=== PATIENT | female | born 1950 | race Caucasian/White ===

== ENCOUNTER 2017-04-09 05:14 | Inpatient (IN) | payer BC, OTHER ==
[2017-03-04 14:42] VITALS: BMI 36.0
--- NOTE | 2017-03-04 15:08 | PAT Medication Instructions ---
Service Date Mar 04, 2017. Current Home Medication List Acetaminophen Tab (Tylenol), 650 MG PO TID PRN for Pain Aspirin (Aspirin Ec), 81 MG PO HS Atenolol (Tenormin), 25 MG PO QAM Calcium/Vitamin D (Os-Mak 500 Plus D), 1 TAB PO QPM Cholecalciferol (Vitamin D3), 1 CAP PO QAM Hydrocodone/Acetaminophen 5MG/325MG ([place] 5MG/325MG), 2 TABLETS PO TID PRN for Pain Lisinopril (Prinivil), 10 MG PO QPM Medication Instructions For Your Scheduled Surgery - Hold the following medications evening prior to surgery: Lisinopril (Prinivil), 10 MG PO QPM - Hold the following medications the morning of surgery: Cholecalciferol (Vitamin D3), 1 CAP PO QAM - Take the following medications the morning of surgery with a sip of water: Hydrocodone/Acetaminophen 5MG/325MG ([place] 5MG/325MG), 2 TABLETS PO TID PRN for Pain (can take up to four hours prior to surgery if needed) Atenolol (Tenormin), 25 MG PO QAM Acetaminophen Tab (Tylenol), 650 MG PO TID PRN for Pain (if needed) - Take the following medications as scheduled the night before surgery: Hydrocodone/Acetaminophen 5MG/325MG ([place] 5MG/325MG), 2 TABLETS PO TID PRN for Pain Calcium/Vitamin D (Os-Mak 500 Plus D), 1 TAB PO QPM Acetaminophen Tab (Tylenol), 650 MG PO TID PRN for Pain Aspirin (Aspirin Ec), 81 MG PO HS If you have any questions please call us at [phone] or [phone] ( [place]) or [phone]
[2017-03-04 15:55] LABS: BASO % 0.1 %; BASO ABS # 0.01 K/uL (0-0.2); COMPLETE YES; EOS % 1.2 %; HEMATOCRIT 43.1 % (37-47); IG% 0.3 %; LYMPH % 16.8 %; LYMPH ABS # 1.16 K/uL (1.2-3.4); MEAN CELL VOLUME 93.9 fL (80-100); MEAN CORPUSCULAR HEMOGLOBIN 31.4 pg (25-34); MEAN CORPUSCULAR HGB CONC 33.4 g/dl (32-36); MEAN PLATELET VOLUME 12.9 fL (7.4-10.4); NEUT % 74.6 %; PLATELET COUNT 164 K/uL (130-400); RED BLOOD COUNT 4.59 M/uL (4.2-5.4)
--- NOTE | 2017-03-04 15:55 | DIAGNOSTIC IMAGING REPORT ---
CHEST PREADMISSION(PA/LAT) CLINICAL HISTORY: Preoperative evaluation. COMPARISON STUDY: No previous studies for comparison. FINDINGS: There is mild elevation of the left hemidiaphragm. No areas of consolidation are present. There is no evidence of pulmonary edema. Cardiac size is normal. Mediastinal contours are normal. IMPRESSION: No acute cardiopulmonary findings. Electronically signed by: Anthony Mckeon M.D. 03/04/2017 3:54 PM Dictated Date/Time: 03/04/2017 3:53 PM
[2017-03-04 16:08] LABS: URINE APPEARANCE CLEAR (CLEAR); URINE BILIRUBIN NEG (NEG); URINE COLOR YELLOW; URINE NITRITE NEG (NEG); URINE PH 5.5 (4.5-7.5); URINE SPECIFIC GRAVITY 1.015 (1.000-1.030); UROBILINOGEN NEG (NEG)
[2017-03-04 16:10] LABS: MANUAL MICROSCOPIC REQUIRED? YES; REVIEW REQ? NO
[2017-03-04 16:10] LABS: INR 1.1 (0.9-1.1); PARTIAL THROMBOPLASTIN RATIO 1.1; PROTHROMBIN TIME (PATIENT) 11.4 SECONDS (9.0-12.0)
[2017-03-04 16:16] LABS: BUN/CREATININE RATIO 44.8 (10-20); CALCIUM 9.9 mg/dl (8.5-10.1); CREATININE 0.62 mg/dl (0.60-1.20); POTASSIUM 4.8 mmol/L (3.5-5.1)
[2017-03-04 16:19] LABS: URINE BACTERIA 1+ (NEG); URINE RBC 0-4 /hpf (0-4)
[2017-03-04 16:20] LABS: ZZUR CULT IF INDIC CLEAN CATCH YES
[2017-03-05 07:53] LABS: ESTIMATED AVERAGE GLUCOSE 114 mg/dl; HA1C FLAG Normal (Normal)
--- NOTE | 2017-04-08 20:05 | HISTORY & PHYSICAL EXAMINATION ---
DATE OF ADMISSION: 04/09/2017 CHIEF COMPLAINT: Chronic right knee pain. HISTORY OF PRESENT ILLNESS: This is a 66-year-old female patient of Dr. Gorman complaining of chronic right knee pain, longstanding, now progressively getting worse. The patient has been diagnosed with end-stage osteoarthritis. She has failed conservative treatments including anti-inflammatories, narcotic medications, use of a cane and a walker. The patient has increased pain with weightbearing activities and her pain does interfere with her activities of daily living. PAST MEDICAL HISTORY: Hypertension, osteoarthritis and obesity. SOCIAL HISTORY: Nonsmoker, nondrinker. FAMILY HISTORY: Noncontributory. REVIEW OF SYSTEMS: The patient complains of chronic right knee pain. Otherwise denies any shortness of breath, chest pain, nausea, vomiting or any other joint complaints. PAST SURGICAL HISTORY: Tonsillectomy, bilateral right ear surgery and an ankle fracture. MEDICATIONS: 1. Aspirin 81 mg daily. 2. Atenolol 25 mg daily. 3. Calcium 500 plus D daily. 4. Hydrocodone as needed. 5. Lisinopril 10 mg daily. 6. Tylenol Arthritis as needed. ALLERGIES: No known drug allergies. PHYSICAL EXAMINATION: A well-developed and well-nourished 66-year-old female patient of Dr. Gorman complaining of chronic right knee pain, longstanding and now progressively getting worse. She also has a history of hypertension, osteoarthritis and obesity. PLAN: The patient was advised of her diagnosis. Indications, risks, benefits and postop course have all been reviewed. The patient wishes to proceed with a right total knee arthroplasty. Necessary consent forms, preoperative testing and clearances will be obtained.
[~2017-04-09] VITALS: Ht 165.1 cm; Wt 100.0 kg
[2017-04-09] VITALS (9 sets, daily range): BP systolic 100–163; BP diastolic 64–82; PULSE 74–89; TEMP 36.4–36.8; O2SAT 92–99; Ht 165.1 cm; Wt 100.0 kg
[~2017-04-09 05:14] MED LIST: ACET325T96 PO; ASPI81TA28 PO; ATEN-173 PO; CALC500C70 PO; CHOL2000 PO; HYDR-5688 PO; LISI10TA PO; MISSING PHYSICIAN SIGNATURE ON ORDER SCH
[2017-04-09] MEDS ORDERED: METOCLOPRAMIDE HCL 10 MG TAB PO SCH (06:00)
[2017-04-09] MEDS ORDERED: LACTATED RINGER'S 500 ML IV SCH (06:00)
[2017-04-09] MEDS ORDERED: FAMOTIDINE 20 MG TAB PO SCH (06:00)
[2017-04-09] MEDS ORDERED: ACETAMINOPHEN 500 MG TAB PO SCH (06:00)
[2017-04-09] MEDS ORDERED: LACTATED RINGER'S 1000ML IV SCH (06:00)
[2017-04-09] MEDS ORDERED: CEFAZOLIN 2000 MG/60 ML D5W 60 ML IV SCH (06:00)
[2017-04-09] MEDS ORDERED: CeleBREX 200 MG CAP PO SCH (06:00)
[2017-04-09] MEDS ORDERED: GABAPENTIN 300 MG CAP PO SCH (06:00)
[2017-04-09] MEDS ORDERED: LACTATED RINGER'S 1000ML 1,000 ML IV SCH (06:00)
[2017-04-09] MEDS ORDERED: ROPIVACAINE 5MG/ML 30 ML 150 MG, BUPIVACAINE/EPINEPHR 0.5% MPF 30 ML, KETOROLAC TROMETH... INFIL SCH ×7 (06:00)
[2017-04-09] MEDS ORDERED: DEXAMETHASONE 4 MG TAB PO SCH (06:00)
[2017-04-09] MEDS: TRANEXAMIC ACID INJ 1,000 MG in SODIUM CHLORIDE 0.9% 100ML 100 ML IV SCH ×2 (06:12→06:30)
[2017-04-09] MEDS ORDERED: BUPIVACAINE 0.5 % 5 MG/1 ML PF 10ML VIAL ONE (06:27)
[2017-04-09] MEDS ORDERED: PROPOFOL IV EMULSION 10 MG/ML 20 ML VIAL IV ONE (06:35)
[2017-04-09] MEDS ORDERED: LIDOCAINE HCL 2% 2 ML VIAL (20MG/ML) ONE (06:35)
[2017-04-09] MEDS ORDERED: FENTANYL CITRATE INJ 50 MCG/1 ML 2 ML VIAL ONE (06:35)
[2017-04-09] MEDS ORDERED: MIDAZOLAM HCL 1 MG/ML 2ML VIAL ONE ×2 (06:35)
[2017-04-09] MEDS ORDERED: BACITRACIN 50000 UNIT VIAL ONE (06:51)
[2017-04-09] MEDS ORDERED: POVIDONE-IODINE OP SOLN 30 ML BTL ONE (06:51)
[2017-04-09] MEDS ORDERED: ORTHO JOINT ANESTHETIC ONE (06:51)
[2017-04-09] MEDS ORDERED: EpHEDrine SULFATE INJ 50 MG/ML AMP IV PRN (07:00)
[2017-04-09] MEDS ORDERED: ONDANSETRON INJ 2 MG/ML 2 ML VIAL IV PRN ×2 (07:00→10:00)
[2017-04-09] MEDS ORDERED: ATROPINE SULFATE 0.1 MG/ML 5ML SYR IV PRN (07:00)
[2017-04-09] MEDS ORDERED: FENTANYL CITRATE INJ 50 MCG/1 ML 2 ML VIAL IV PRN (07:00)
--- NOTE | 2017-04-09 07:14 | History & Physical Bridge Note ---
H&P Re-Evaluation Bridge Note: I have examined the patient, reviewed the History & Physical and in the interval since the performance of the History & Physical I have noted the following changes of clinical significance: No changes noted
[2017-04-09] MEDS ORDERED: EpHEDrine SULFATE 50MG/5ML SYR ONE (07:47)
[2017-04-09] MEDS ORDERED: PHENYLEPHRINE 100MCG/ML 5ML SYR ONE (08:18)
--- NOTE | 2017-04-09 09:12 | [facility] Operative Report ---
Operative Report Operative Date April 09, 2017. Pre-Operative Diagnosis Right knee end-stage osteoarthritis Post-Operative Diagnosis same,chronic scarred prepatellar bursitis Procedure(s) Performed right total knee arthroplasty Surgeon Dr. Spear Track Sweeper Surgeon(s) Jared Hurtado PA-C Estimated Blood Loss 5cc Findings as above,valgus knee grade 4 lateral with some bone loss mild Specimens A. Right knee bone and tissue Drains 2 hemovac Anesthesia spinal sedation regional block and orthomix Complication(s) None Disposition Recovery Room / PACU Indications end stage oa I attest to the content of the Intraoperative Record and any orders documented therein. Any exceptions are noted below.
[2017-04-09] MEDS ORDERED: ONDANSETRON INJ 2 MG/ML 2 ML VIAL ONE (09:23)
[2017-04-09] MEDS ORDERED: ZOLPIDEM TARTRATE 5 MG TAB PO PRN (10:00)
[2017-04-09] MEDS ORDERED: OXYCODONE HCL IR 5 MG TAB (IMMEDIATE RELEASE) PO PRN (10:00)
[2017-04-09] MEDS ORDERED: MoRPHine SULFATE 2 MG/ML CARP IV PRN (10:00)
[2017-04-09] MEDS ORDERED: BISACODYL 10 MG SUPP PR PRN (10:00)
[2017-04-09] MEDS ORDERED: SOD PHOSPHATE/SOD BIPHOSPHATE ENEMA 132 ML BTL PR PRN (10:00)
[2017-04-09] MEDS ORDERED: MAGNESIUM HYDROXIDE SUSP 30 ML UDC PO PRN (10:00)
--- NOTE | 2017-04-09 10:12 | DIAGNOSTIC IMAGING REPORT ---
RIGHT KNEE 1 OR 2 VIEWS ROUTINE CLINICAL HISTORY: Degenerative arthritis COMPARISON: None. DISCUSSION: There are postsurgical changes of a total right knee arthroplasty and patellar resurfacing. The femoral and tibial components appear well seated. There is an overlying surgical drain. There is air in soft tissues consistent with recent surgery IMPRESSION: Postsurgical changes of a total right knee arthroplasty Electronically signed by: Michele Koehler M.D. 04/09/2017 10:10 AM Dictated Date/Time: 04/09/2017 10:10 AM
[2017-04-09] MEDS ORDERED: MoRPHine SULFATE 4 MG/ML 1 ML CARP\\VIAL IV PRN (11:00)
[2017-04-09] MEDS: D5W AND 1/2NSS + 20MEQ KCL 1,000 ML IV SCH ×2 (11:29→21:32)
--- NOTE | 2017-04-09 11:40 | Medical Consult ---
Consultation Date of Consultation: April 09, 2017. Attending Physician: Zack Spear M.D. Reason for Consultation: Medical management History of Present Illness Patient is a 66 y/o female, with PMHx of HTN, osteoarthritis, and obesity, s/p right TKA by Dr. Spear on 04/09. Patient states she is feeling well. Pain is currently well controlled. She has eaten postop w/ no complaints. No BM/flatus postop. Patient denies any fever, chills, sweats, lightheadedness, dizziness, vision changes, CP, palpitations, edema, SOB, wheezing, cough, abdominal pain, nausea, vomiting, diarrhea, urinary symptoms, melena, numbness/tingling, weakness, muscle/joint pain, anxiety/depression, active bleeding, or new skin discoloration/changes. Past Medical/Surgical History PAST MEDICAL HISTORY: 1. HTN 2. Osteoarthritis 3. Obesity PAST SURGICAL HISTORY: 1. Tonsillectomy 2. Bilateral right ear surgery 3. Ankle fracture repair Social History Smoking Status: Never Smoker Alcohol Use: none Housing Status: lives with family Allergies Coded Allergies: Adhesives (Verified Allergy, Mild, RED RASH, 04/09/17) NO KNOWN DRUG ALLERGIES (Verified Allergy, Mild, ., 04/09/17) Nickel (Verified Allergy, Mild, EARRING MAKES EAR SORE, 04/09/17) Home Medications Reported Home Medications Medications Dose Route/Sig Max Daily Dose Days Date Category Dose Instructions Prinivil (Lisinopril) 10 Mg Tab 20 Mg PO QPM 03/04/17 Reported Tylenol (Acetaminophen) 325 Mg Tab 650 Mg PO TID PRN 03/04/17 Reported [place] 5MG/325MG (Acetaminophen/Hydrocodone Bitart) Tab 2 Tablets PO TID PRN 03/04/17 Reported PRN PAIN Vitamin D3 (Cholecalciferol) 2,000 Unit Cap 1 Cap PO QAM 03/04/17 Reported Os-Mak 500 Plus D (Calcium/Vitamin D) Tab 1 Tab PO QPM 03/04/17 Reported Tenormin (Atenolol) 25 Mg Tab 25 Mg PO QAM 03/04/17 Reported Aspirin Ec (Aspirin) 81 Mg Tab 81 Mg PO HS 03/04/17 Reported Current Inpatient Medications Current Inpatient Medications Medications (Trade) Dose Ordered Sig/Twan Route Start Time Stop Time Status Last Admin Dose Admin Cefazolin Sodium (Ancef 2000mg/60 ml D5W) 60 ml @ 100 mls/hr PREOP IV 04/09/17 06:00 04/09/17 18:00 04/09/17 07:25 100 MLS/HR Acetaminophen (Tylenol Tab) 1,000 mg PREOP PO 04/09/17 06:00 04/09/17 18:00 04/09/17 06:19 1,000 MG Celecoxib (CeleBREX CAP) 200 mg PREOP PO 04/09/17 06:00 04/09/17 18:00 04/09/17 06:19 200 MG Dexamethasone (Decadron Tab) 8 mg PREOP PO 04/09/17 06:00 04/09/17 18:00 04/09/17 06:17 8 MG Famotidine (Pepcid Tab) 20 mg PREOP PO 04/09/17 06:00 04/09/17 18:00 04/09/17 06:18 20 MG Gabapentin (Neurontin Cap) 300 mg PREOP PO 04/09/17 06:00 04/09/17 18:00 04/09/17 06:18 300 MG Metoclopramide HCl 10 mg 10 mg PREOP PO 04/09/17 06:00 04/09/17 18:00 04/09/17 06:17 10 MG Tranexamic Acid/ Sodium Chloride (Cyklokapron Inj/ Nss 100ml) 110 ml @ 660 mls/hr TODAY@06,0630 IV 04/09/17 06:00 04/09/17 18:00 04/09/17 06:12 660 MLS/HR Fentanyl Citrate (Fentanyl Inj) 50 mcg Q5M PRN IV 04/09/17 07:00 04/09/17 12:00 Ondansetron HCl (Zofran Inj) 4 mg ONE PRN IV 04/09/17 07:00 04/09/17 12:00 Ephedrine Sulfate (EpHEDrine SULFATE INJ) 5 mg Q5M PRN IV 04/09/17 07:00 04/09/17 12:00 Atropine Sulfate (Atropine Sulfate 0.1MG/Ml Inj) 0.5 mg Q1M PRN IV 04/09/17 07:00 04/09/17 12:00 Atenolol (Tenormin Tab) 25 mg QAM PO 04/10/17 09:00 05/10/17 08:59 Calcium/Vitamin D (Caltrate Plus Tab) 1 tab QPM PO 04/09/17 21:00 05/09/17 20:59 Lisinopril (Zestril Tab) 20 mg QPM PO 04/09/17 21:00 05/09/17 20:59 Cholecalciferol 2000 inter.unit 2,000 inter.unit DAILY PO 04/10/17 09:00 05/10/17 08:59 Potassium Chloride/Dextrose/ Sod Cl 1,000 ml @ 100 mls/hr Q10H IV 04/09/17 11:15 04/10/17 09:45 04/09/17 11:29 100 MLS/HR Cefazolin Sodium/ Dextrose (Ancef Iv/D5 50ml) 60 ml @ 100 mls/hr Q8H IV 04/09/17 14:00 04/09/17 22:35 Celecoxib (CeleBREX CAP) 200 mg BID PO 04/09/17 21:00 05/09/17 20:59 Oxycodone HCl (Roxicodone Immediate Rel Tab) 1 TABLET FOR PAIN RATING... Q4H PRN PO 04/09/17 10:00 04/23/17 09:59 Oxycodone HCl (Oxycontin Tab) 10 mg Q12 PO 04/09/17 21:00 04/23/17 20:59 Morphine Sulfate (MoRPHine SULFATE INJ) 2 mg Q2H PRN IV 04/09/17 10:00 04/23/17 09:59 Acetaminophen (Tylenol Tab) 1,000 mg Q8H PO 04/09/17 14:00 05/09/17 09:59 Magnesium Hydroxide (Milk Of Magnesia Susp) 30 ml Q6H PRN PO 04/09/17 10:00 05/09/17 09:59 Bisacodyl (Dulcolax Supp) 10 mg DAILY PRN [place] 04/09/17 10:00 05/09/17 09:59 Sodium Biphosphate/ Sodium Phosphate (Fleet Enema) 132 ml DAILY PRN [place] 04/09/17 10:00 05/09/17 09:59 Docusate Sodium (coLACE CAP) 100 mg BID PO 04/09/17 21:00 05/09/17 20:59 Diphenhydramine HCl (Benadryl Cap) 25 mg Q8H PRN PO 04/09/17 10:00 05/09/17 09:59 Zolpidem Tartrate (Ambien Tab) 5 mg HSZ PRN PO 04/09/17 10:00 05/09/17 09:59 Multivitamins (Multivitamin Tab) 1 tab QAM PO 04/10/17 09:00 05/10/17 08:59 Ondansetron HCl (Zofran Inj) 4 mg Q6H PRN IV 04/09/17 10:00 05/09/17 09:59 Pantoprazole Sodium (Protonix Tab) 40 mg QAM PO 04/10/17 09:00 05/10/17 08:59 Tramadol HCl (Ultram Tab) 1 tablet for pain rating... Q4H PRN PO 04/09/17 10:00 05/09/17 09:59 Aspirin (Ecotrin Tab) 81 mg BID PO 04/09/17 21:00 05/09/17 20:59 Morphine Sulfate (MoRPHine SULFATE INJ) 4 mg Q2H PRN IV 04/09/17 11:00 04/23/17 10:59 Physical Exam Date Time Temp Pulse Resp B/P Pulse Ox O2 Delivery O2 Flow Rate FiO2 04/09/17 11:00 88 18 121/74 04/09/17 10:30 97 Nasal Cannula 3.0 04/09/17 10:30 97 Nasal Cannula 3.0 04/09/17 10:15 36.4 89 16 102/74 97 Nasal Cannula 3 04/09/17 10:05 36.4 91 16 122/66 97 Nasal Cannula 3 04/09/17 09:55 90 16 108/72 97 Nasal Cannula 3 04/09/17 09:45 36.1 96 16 109/67 95 Nasal Cannula 3 04/09/17 05:38 36.8 78 20 163/82 93 Room Air General Appearance: WD/WN, no apparent distress Head: normocephalic, atraumatic Eyes: normal inspection, PERRL ENT: hearing grossly normal Neck: supple Respiratory/Chest: lungs clear, no respiratory distress, no accessory muscle use Cardiovascular: regular rate, rhythm Abdomen/GI: normal bowel sounds, non tender, soft Extremities/Musculoskelatal: no pedal edema, + pertinent finding (TEDs/SCDs on ; ENRIQUE bandage to RLE ) Neurologic/Psych: alert, normal mood/affect, oriented x 3 Skin: normal color, warm/dry, no rash Assessment & Plan Patient is a 66 y/o female, with PMHx of HTN, osteoarthritis, and obesity, s/p right TKA by Dr. Spear on 04/09. - Surgical management, pain management, PT/OT, and DVT prophylaxis as per primary team - Follow CBC and PRP HTN: - Continue Atenolol 25 mg daily - Hold Lisinopril 20 mg daily pending PRP postop - Hydralazine 10 mg IV PRN GI Prophylaxis: Protonix daily, Maalox PRN, IV Zofran PRN, Colace and/or Milk of Mag PRN DVT prophylaxis: As per primary team Code Status: LEVEL I, FULL Dispo: Discharge as per primary team Thank you for this consultation. We will continue to follow throughout hospital stay.
[2017-04-09] MEDS ORDERED: HydrALAZINE HCL 20 MG/ML VIAL IV. PRN (11:45)
--- NOTE | 2017-04-09 12:23 | Anesthesiology Progress Note ---
Anesthesia Post Op Note Date & Time April 09, 2017 at 12:23 Vital Signs Pain Intensity: 0.0 Vital Signs Past 12 Hours Date Time Temp Pulse Resp B/P Pulse Ox O2 Delivery O2 Flow Rate FiO2 04/09/17 11:00 88 18 121/74 04/09/17 10:30 97 Nasal Cannula 3.0 04/09/17 10:30 97 Nasal Cannula 3.0 04/09/17 10:15 36.4 89 16 102/74 97 Nasal Cannula 3 04/09/17 10:05 36.4 91 16 122/66 97 Nasal Cannula 3 04/09/17 09:55 90 16 108/72 97 Nasal Cannula 3 04/09/17 09:45 36.1 96 16 109/67 95 Nasal Cannula 3 04/09/17 05:38 36.8 78 20 163/82 93 Room Air Notes Mental Status: alert / awake / arousable, participated in evaluation Pt Amnestic to Procedure: Yes Nausea / Vomiting: adequately controlled Pain: adequately controlled Airway Patency, RR, SpO2: stable & adequate BP & HR: stable & adequate Hydration State: stable & adequate Neuraxial Anesthesia: was administered, sensory block is resolving Anesthetic Complications: no major complications apparent
[2017-04-09] MEDS: ACETAMINOPHEN 500 MG TAB PO SCH ×2 (13:14→21:31)
[2017-04-09] MEDS: CEFAZOLIN IV 2,000 MG in DEXTROSE 5% 50ML 50 ML IV SCH ×2 (13:19→21:32)
[2017-04-09] MEDS: CALCIUM 600MG + VIT D 400 IU TAB PO SCH (20:34)
[2017-04-09] MEDS: DOCUSATE SODIUM 100 MG CAP PO SCH (20:34)
[2017-04-09] MEDS: CeleBREX 200 MG CAP PO SCH (20:35)
[2017-04-09] MEDS: ASPIRIN 81 MG ECTAB PO SCH (20:35)
[2017-04-09] MEDS: OXYCODONE HCL 10 MG TABCR (OXYCONTIN) PO SCH (20:35)
[2017-04-09] MEDS ORDERED: LISINOPRIL 20 MG TAB PO SCH (21:00)
--- NOTE | 2017-04-10 02:56 | OPERATIVE REPORT ---
DATE OF OPERATION: 04/09/2017 INDICATION FOR PROCEDURE: A 66-year-old female with chronic progressive pain in her right knee. She has osteoarthritis in her knee. She is dxdt-sy-cyen in the lateral compartment. She has a valgus knee. She has had progressive deformity and disability. She also has obesity, BMI of 36.7 and venous stasis disease. She now presents for right knee replacement. PREOPERATIVE DIAGNOSIS: End-stage osteoarthritis, right knee and obesity, BMI of 36.7. POSTOPERATIVE DIAGNOSIS: Same. PROCEDURE: Right total knee arthroplasty. SURGEON: Dr. Spear. TENSILE TESTER: JOSE Green. ANESTHESIA: Spinal, regional block, ortho mix. OPERATIVE PROCEDURE: The patient taken to the operating room after a regional block placed and a spinal anesthetic. She was placed supine on the operating room table. Pneumatic tourniquet was placed about her obese upper thigh. The right lower extremity was prepped and draped in a sterile fashion using ChloraPrep. The leg was elevated and exsanguinated with Esmarch bandage and the pneumatic tourniquet was raised. Her knee was examined and she had a valgus knee with qphd-rh-[id number] crepitation in the lateral compartment, some laxity of the MCL. The knee was exposed, starting with an anterior incision across the knee. Skin was incised sharply. A deep layer of fat was divided down to the patella and the fascia of the quadriceps tendon. On entering the prepatellar bursa area, she has a very chronically thickened scarred prepatellar bursa, which had very thick bursa and paratenon over the patellar tendon anteriorly. Some of this thick prepatellar bursa and paratenon-type tissue was resected. The incision was made through her medial retinaculum and extended up into the mid third of the quadriceps tendon, extending down to the medial tibial tubercle. I used the Martínez \T\ Nephew Journey 2.0 total knee arthroplasty system, using standard instrumentation. Intraarticular findings demonstrate she is [id number] in the lateral compartment. She had some mild bone loss. She had diffuse synovitis throughout the knee. The scarred infrapatellar fat pad was resected, the lateral meniscus remnants were resected, the medial meniscus was resected, the cruciate ligaments were resected. I did no releases on the medial side. We did release the lateral capsule of some of IT band, the posterolateral capsule on the lateral side to help balance the ligaments. The fat pad over the anterior femur, for placement of the femoral component in that area, was resected just above the articular surface. The lateral synovial bands were released. The femur was exposed with retractors. An intramedullary drill hole was made into the femoral canal. The intramedullary guide mj was placed and a distal femoral cut was made with a standard distal femoral cut, made at a 5-degree valgus cut. The femur was then incised for a 4 femoral component. The drill holes for the alignment guide and the distal femoral cutting guide were made in approximately 3 degrees of external rotation, matching the epicondylar axis. The femur was sized for a 4 femur. After the distal femoral cut was made with a standard cut, a 5 and 1 cutting guide was placed and pinned in position and the anterior, posterior and chamfer cuts were made. The knee was then extended and a subperiosteal peel lateral release was performed around the patella. The patella width was measured and the width was reproduced, using a freehand cut technique and a 32 patellar component. Drill holes were made and the excess lateral facet of the patella was beveled off to prevent any impingement on the femoral condyle or the prosthetic. The tibia was then exposed and an external tibial cutting guide was used to make a perpendicular cut to the long axis of the tibia, matching some of the patient's slope. We made the cut below the most deficient lateral side. The lamina route cdl driver was then used to assess ligamentous balance. Ligaments were noted to be balanced in extension and flexion. The tibia was then re-exposed and the 4 tibial trial was externally rotated in line with the tibial tubercle. The trial was pinned in position. The punch for the stem was used and the 4 femoral trial was inserted, centered in the notch, cutting devices were used. A collar was placed and a 10 trial posterior stabilized insert gave balanced ligaments through a full range of motion, but the patella had some slight lateral liftoff. So, we went ahead and did a lateral release, releasing the lateral retinaculum and the IT band fibers, leaving the synovium intact. Patella tracked centrally. At this point, the trials were removed. The anesthetic cocktail was injected per protocol. The knee was copiously irrigated with pulsatile lavage and antibiotic solution and bacitracin. The final components were then cemented with Simplex cement. The final components were the 4 Oxinium posterior stabilized Martínez \T\ Nephew Journey 2.0 femur, the 4 tibial baseplate, the 10 posterior stabilized poly insert and a 32 mm patella. All the cementing cured, the Betadine soak was used per protocol. The knee was then copiously irrigated with antibiotic solution and bacitracin. The 2 drains were brought out laterally and connected to a Hemovac. The quadriceps tendon and medial retinaculum were closed with interrupted [id number] #1 Vicryl sutures. The knee was taken through a full range of motion and the repair was secure. Subcutaneous tissues were injected with more ortho mix and then the subcutaneous tissue closed with interrupted 2-0 Vicryl and the skin was closed with 3-0 nylon vertical mattress sutures and sterile dressings were applied and the patient tolerated the procedure well. JOSE Green, was my permit review assistant. He functioned as the permit review assistant in the entire procedure. He assisted in patient positioning, prepping, draping, leg positioning, soft tissue retraction, instrument management and performed the fascial, subcutaneous and skin closure and will participate in postoperative care of the patient. I attest to the content of the Intraoperative Record and any orders documented therein. Any exceptio ns are noted below.
[2017-04-10 03:21] VITALS: BP 111/67; PULSE 74; TEMP 36.5; O2SAT 93
[2017-04-10] MEDS: ACETAMINOPHEN 500 MG TAB PO SCH ×3 (05:32→21:01)
[2017-04-10 05:50] LABS: MEAN CELL VOLUME 95.2 fL (80-100); MEAN CORPUSCULAR HEMOGLOBIN 30.7 pg (25-34); MEAN CORPUSCULAR HGB CONC 32.2 g/dl (32-36); MEAN PLATELET VOLUME 12.3 fL (7.4-10.4); PLATELET COUNT 150 K/uL (130-400); RED BLOOD COUNT 3.78 M/uL (4.2-5.4); WHITE BLOOD COUNT 11.83 K/uL (4.8-10.8)
[2017-04-10 06:23] LABS: BUN/CREATININE RATIO 39.1 (10-20); CREATININE 0.81 mg/dl (0.60-1.20); POTASSIUM 6.5 mmol/L (3.5-5.1)
[2017-04-10 06:31] LABS: CALCIUM 9.4 mg/dl (8.5-10.1)
[2017-04-10 07:11] VITALS: BP 125/74; PULSE 71; TEMP 36.4; O2SAT 94
[2017-04-10] MEDS ORDERED: INSULIN HUMAN REGULAR PER UNIT 10 UNITS in SYRINGE 9.9 ML SQ ONE (07:15)
[2017-04-10] MEDS ORDERED: DEXTROSE 50% 50 ML SYR IV ONE (07:15)
[2017-04-10] MEDS ORDERED: INSULIN HUMAN REGULAR PER UNIT 10 UNITS in SYRINGE 9.9 ML IV ONE (07:15)
[2017-04-10 08:07] VITALS: BP 144/72; PULSE 74; TEMP 36.6; O2SAT 94
--- NOTE | 2017-04-10 08:14 | Progress Note ---
Progress Note Date of Service April 10, 2017. Progress Note Critical lab called by RN to inform potassium of 6.5 without mention of hemolyzed sample. She was getting D5W with 20 meq KCl which was stopped immeadiately upon this result. EKG obtained and did not show any change from previous, no prolongation of QRS, dynamic T wave changes. Plan - Dextrose 50% 50 ml ordered with insulin 10 units IV. - repeat BMP 30 mins to 1 hour after above given.
[2017-04-10] MEDS: DOCUSATE SODIUM 100 MG CAP PO SCH ×2 (08:25→21:00)
[2017-04-10] MEDS: CHOLECALCIFEROL 1000 INTER.UNIT TAB PO SCH (08:25)
[2017-04-10] MEDS: CeleBREX 200 MG CAP PO SCH ×2 (08:25→21:00)
[2017-04-10] MEDS: ASPIRIN 81 MG ECTAB PO SCH ×2 (08:26→20:59)
[2017-04-10] MEDS: PANTOprazole SOD 40 MG TAB PO SCH (08:26)
[2017-04-10] MEDS: MULTIVITAMIN TAB PO SCH (08:26)
[2017-04-10] MEDS: OXYCODONE HCL 10 MG TABCR (OXYCONTIN) PO SCH ×2 (08:31→21:00)
--- NOTE | 2017-04-10 08:38 | Anesthesiology Progress Note ---
Anesthesia Post Op Note Date & Time April 10, 2017 at 08:37 Vital Signs Pain Intensity: 2.0 Vital Signs Past 12 Hours Date Time Temp Pulse Resp B/P Pulse Ox O2 Delivery O2 Flow Rate FiO2 04/10/17 08:07 36.6 74 14 144/72 94 Room Air 04/10/17 07:11 36.4 71 16 125/74 94 Room Air 04/10/17 03:21 36.5 74 16 111/67 93 Room Air 04/10/17 00:07 Room Air 04/09/17 23:27 36.4 74 16 109/64 92 Room Air Notes Mental Status: alert / awake / arousable, participated in evaluation Anesthetic Complications: no major complications apparent
[2017-04-10 09:19] LABS: CREATININE 0.91 mg/dl (0.60-1.20); POTASSIUM 4.7 mmol/L (3.5-5.1)
[2017-04-10 09:22] LABS: CALCIUM 10.4 mg/dl (8.5-10.1)
--- NOTE | 2017-04-10 10:29 | Orthopedic Progress Note ---
Orthopedic Progress Note Date of Service April 10, 2017. Subjective Post OP Day: 1 Reports: feeling well, pain controlled w PO medications, Denies: SOB, calf pain , chest pain, complaints, light headedness, nausea / vomiting Additional Notes: K+ elevated this AM, EKG normal. Dextrose/ insulin ordered per medicine. Repeat K+ later this AM WNL. Objective calves soft nontender, N/V intact, capillary refill less than 2 sec., dressing C /D/I, A&O x3, toes mobile Date Time Temp Pulse Resp B/P Pulse Ox O2 Delivery O2 Flow Rate FiO2 04/10/17 09:01 Room Air 04/10/17 08:07 36.6 74 14 144/72 94 Room Air 04/10/17 07:15 Room Air 04/10/17 07:11 36.4 71 16 125/74 94 Room Air 04/10/17 03:21 36.5 74 16 111/67 93 Room Air 04/10/17 00:07 Room Air 04/09/17 23:27 36.4 74 16 109/64 92 Room Air 04/09/17 20:11 36.4 88 17 130/74 94 Room Air 04/09/17 16:13 Nasal Cannula 2.0 04/09/17 15:01 36.5 79 17 107/64 97 Nasal Cannula 3.0 04/09/17 13:36 36.4 88 18 100/66 95 Nasal Cannula 2.0 04/09/17 12:48 89 18 117/73 04/09/17 12:00 88 117/71 99 Nasal Cannula 3.0 04/09/17 11:00 88 18 121/74 04/09/17 10:30 97 Nasal Cannula 3.0 04/09/17 10:30 97 Nasal Cannula 3.0 Laboratory Results 24 Hours: Test 04/10/17 05:20 Hematocrit 36.0 % Hemoglobin 11.6 g/dL Assessment & Plan Assessment: POD #1, Right TKA PT/ OT DVT proph- ASA D/C planning- Home w HH Appreciate medicine input. Inhouse Planning Pain Management: Celebrex, Oxycontin, Ultram, Morphine, PO Tylenol, Oxy IR DVT Prophylaxis: TEDs, SCDs, ASA Discharge Planning Discharge Planning: home with home health Pain Management: Celebrex, Oxycontin, PO Tylenol, Oxy IR DVT Prophylaxis: TEDs, ASA Therapy: Physical Therapy, Occupational Therapy
[2017-04-10 12:30] VITALS: BP 112/64; PULSE 72; TEMP 36.4; O2SAT 97
[2017-04-10 15:56] VITALS: BP 112/66; PULSE 65; TEMP 36.6; O2SAT 98
--- NOTE | 2017-04-10 17:49 | Hospitalist Progress Note ---
Hospitalist Progress Note Date of Service April 10, 2017. (Roly Fermin, REMY) Subjective Pt evaluation today including: conversation w/ patient, physical exam, chart review, lab review, review of studies, review of inpatient medication list Pain: knee pain controlled well PO Intake: tolerating PO Voiding: no voiding problems Constitutional: No chills, No fatigue, No fever, No problem reported, No see HPI, No sweats, No weakness, No weight loss Eyes: No diplopia, No discharge, No eye pain, No problem reported, No redness, No see HPI, No worsening of vision ENT: No dental problems, No hearing loss, No nasal symptoms, No problem reported, No see HPI, No sore throat, No tinnitus, No trouble swallowing, No unusual epistaxis Respiratory: No cough, No dyspnea at rest, No dyspnea on exertion, No hemoptysis, No problem reported, No see HPI, No shortness of breath, No sputum, No wheezing Cardiovascular: No PND, No chest pain, No claudication, No edema, No orthopnea, No palpitations, No problem reported, No see HPI Abdomen: No GI bleeding, No constipation, No diarrhea, No nausea, No pain, No problem reported, No see HPI, No vomiting Musculoskeletal: + swelling, No calf pain, No joint pain, No muscle pain, No problem reported, No see HPI Neurologic: No balance problems, No memory loss, No numbness/tingling, No paralysis, No problem reported, No see HPI, No vertigo, No weakness All Other Systems: Reviewed and Negative (Roly Fermin CRNP) Medications Medications reviewed (Roly Fermin CRNP) Objective Vital Signs Date Time Temp Pulse Resp B/P Pulse Ox O2 Delivery O2 Flow Rate FiO2 04/10/17 09:01 Room Air 04/10/17 08:07 36.6 74 14 144/72 94 Room Air 04/10/17 07:15 Room Air 04/10/17 07:11 36.4 71 16 125/74 94 Room Air 04/10/17 03:21 36.5 74 16 111/67 93 Room Air 04/10/17 00:07 Room Air 04/09/17 23:27 36.4 74 16 109/64 92 Room Air 04/09/17 20:11 36.4 88 17 130/74 94 Room Air 04/09/17 16:13 Nasal Cannula 2.0 04/09/17 15:01 36.5 79 17 107/64 97 Nasal Cannula 3.0 04/09/17 13:36 36.4 88 18 100/66 95 Nasal Cannula 2.0 04/09/17 12:48 89 18 117/73 (Roly Fermin CRNP) Laboratory Results Last 24 Hours Test 04/10/17 05:20 04/10/17 08:25 White Blood Count 11.83 K/uL Red Blood Count 3.78 M/uL Hemoglobin 11.6 g/dL Hematocrit 36.0 % Mean Corpuscular Volume 95.2 fL Mean Corpuscular Hemoglobin 30.7 pg Mean Corpuscular Hemoglobin Concent 32.2 g/dl RDW Standard Deviation 53.4 fL RDW Coefficient of Variation 15.5 % Platelet Count 150 K/uL Mean Platelet Volume 12.3 fL Sodium Level 142 mmol/L 142 mmol/L Potassium Level 6.5 mmol/L 4.7 mmol/L Chloride Level 109 mmol/L 107 mmol/L Carbon Dioxide Level 29 mmol/L 27 mmol/L Anion Gap 4.0 mmol/L 8.0 mmol/L Blood Urea Nitrogen 32 mg/dl 33 mg/dl Creatinine 0.81 mg/dl 0.91 mg/dl Est Creatinine Clear Calc Drug Dose 80.0 ml/min 71.2 ml/min Estimated GFR () 87.7 76.2 Estimated GFR (Non- 75.7 65.7 BUN/Creatinine Ratio 39.1 36.0 Random Glucose 166 mg/dl 124 mg/dl Calcium Level 9.4 mg/dl 10.4 mg/dl (Roly Fermni CRNP) Assessment and Plan 1) R TKA - CMS good, no calf tenderness - dressing d/i - Per Ortho 2) Hyperkalemia - repeat K+ after D50 and Insulin is 4.7 - Fluids HL check BMP in AM 3) DVT prophylaxis per orthopedic guidelines ASA 81mg BID 4) HTN - stable on atenolol 5) D/C per primary (Roly Fermin CRNP) History Chart reviewed and agree with plan as above. (Zoila Cortes MD)
[2017-04-10] MEDS: TRAMADOL HCL 50 MG TAB PO PRN (19:40)
[2017-04-10] MEDS: CALCIUM 600MG + VIT D 400 IU TAB PO SCH (21:00)
[2017-04-10 23:05] VITALS: BP 127/75; PULSE 76; TEMP 36.6; O2SAT 94
[2017-04-11] MEDS: ACETAMINOPHEN 500 MG TAB PO SCH (05:34)
[2017-04-11 06:56] VITALS: BP 133/75; PULSE 72; TEMP 36.7; O2SAT 95
[2017-04-11] MEDS: TRAMADOL HCL 50 MG TAB PO PRN (07:25)
[2017-04-11 07:39] LABS: HEMATOCRIT 36.8 % (37-47); MEAN CELL VOLUME 97.1 fL (80-100); MEAN CORPUSCULAR HEMOGLOBIN 30.9 pg (25-34); MEAN CORPUSCULAR HGB CONC 31.8 g/dl (32-36); MEAN PLATELET VOLUME 12.4 fL (7.4-10.4); PLATELET COUNT 136 K/uL (130-400); RED BLOOD COUNT 3.79 M/uL (4.2-5.4); WHITE BLOOD COUNT 7.94 K/uL (4.8-10.8)
[2017-04-11] MEDS: CHOLECALCIFEROL 1000 INTER.UNIT TAB PO SCH (08:41)
[2017-04-11] MEDS: MULTIVITAMIN TAB PO SCH (08:41)
[2017-04-11] MEDS: CeleBREX 200 MG CAP PO SCH (08:41)
[2017-04-11] MEDS: PANTOprazole SOD 40 MG TAB PO SCH (08:41)
[2017-04-11] MEDS: ASPIRIN 81 MG ECTAB PO SCH (08:42)
[2017-04-11] MEDS: DOCUSATE SODIUM 100 MG CAP PO SCH (08:42)
[2017-04-11] MEDS: OXYCODONE HCL 10 MG TABCR (OXYCONTIN) PO SCH (08:43)
[2017-04-11 08:49] LABS: CALCIUM 9.6 mg/dl (8.5-10.1); CREATININE 0.82 mg/dl (0.60-1.20); POTASSIUM 5.3 mmol/L (3.5-5.1)
--- NOTE | 2017-04-11 09:09 | Orthopedic Progress Note ---
Orthopedic Progress Note Date of Service April 11, 2017. Subjective Post OP Day: 2 Reports: feeling well, pain controlled w PO medications, Denies: SOB, calf pain , chest pain, complaints, light headedness, nausea / vomiting Additional Notes: K+ trending up again this am at 5.3 Objective calves soft nontender, N/V intact, capillary refill less than 2 sec., incision C /D/I, A&O x3, toes mobile Sutures in tact. Date Time Temp Pulse Resp B/P Pulse Ox O2 Delivery O2 Flow Rate FiO2 04/11/17 07:21 Room Air 04/11/17 06:56 36.7 72 16 133/75 95 Room Air 04/10/17 23:30 Room Air 04/10/17 23:05 36.6 76 20 127/75 94 Room Air 04/10/17 15:56 36.6 65 16 112/66 98 Room Air 65 04/10/17 15:45 Room Air 04/10/17 12:30 36.4 72 13 112/64 97 Room Air Laboratory Results 24 Hours: Test 04/11/17 07:00 Hematocrit 36.8 % Hemoglobin 11.7 g/dL Assessment & Plan Assessment: POD #2, Right TKA PT/ OT DVT proph- ASA D/C planning- Home w HH today Appreciate medicine input. Inhouse Planning Pain Management: Celebrex, Oxycontin, Ultram, Morphine, PO Tylenol, Oxy IR DVT Prophylaxis: TEDs, SCDs, ASA Discharge Planning Discharge Planning: home with home health Pain Management: Celebrex, Oxycontin, PO Tylenol, Oxy IR DVT Prophylaxis: TEDs, ASA Therapy: Physical Therapy, Occupational Therapy
[2017-04-11] MEDS ORDERED: ACET-1138 PO (09:13)
[2017-04-11] MEDS ORDERED: RXC5 PO (09:13)
[2017-04-11] MEDS ORDERED: OXYSR10 PO (09:13)
[2017-04-11] MEDS ORDERED: ONDA8TAB6 PO (09:13)
[2017-04-11] MEDS ORDERED: ASPEC81 PO (09:13)
[2017-04-11] MEDS ORDERED: CLB200 PO (09:13)
--- NOTE | 2017-04-11 09:14 | Discharge Instructions ---
Discharge Instructions Date of Service April 11, 2017. Admission Reason for Admission: Right Knee Degenerative Joint Disease Discharge Discharge Diagnosis / Problem: Right TKA Discharge Goals Goal(s): Improve function Activity Recommendations Activity Limitations: as noted below . Instructions / Follow-Up Instructions / Follow-Up ACTIVITY RECOMMENDATIONS: SELF CARE INSTRUCTIONS AFTER TOTAL KNEE REPLACEMENT A. You may need to continue a physical therapy program after discharge from the hospital. There are several options available to you. Your doctor will assist you in selecting the best one for you. 1. An out-patient facility 2 to 3 times a week for therapy or home therapy. 2. Continue working on all exercises taught to you in the hospital. Your goals should be to increase bending of your knee to 90 degrees and beyond and to fully straighten your knee. B. You may progress at your own pace from walking with a walker or crutches to a cane; then to no assistive devices. C. Make walking a part of your daily routine. Be up as much as comfortable with rest periods throughout the day. Rest with leg elevation is very important. Use the ice wrap frequently for the first 3-4 weeks. D. There are no restrictions on activities. You may ride in a car, shop, participate in driver utility worker and all social activities. E. Wear the long elastic stockings (BRIT hose) 20 hours a day for 2 weeks after surgery. They can be removed several times a day for laundering and for a bath. F. You may shower, no tub baths until cleared by your doctor. SPECIAL CARE INSTRUCTIONS: VERY IMPORTANT TO READ AND REVIEW A. There are a few signs you need to watch for after you are home. Call [facility] if you notice any of the followin. Increased severe knee pain. Some pain is expected especially when you exercise. 2. Increased swelling in your leg or knee; pain or swelling of the calf muscle in either lower leg. 3. Any fluid drainage from the incision. 4. Shortness of breath or chest pain. B. Please call [facility] at if you have any concerns or questions about your operation or recovery. The doctor or his nurse will return your call promptly. C. You must take antibiotics before dental work, bladder, bowel or other surgery. Your doctor will provide you with a permanent care to carry describing this precaution. IMPORTANT: * REMEMBER TO TAKE ASPIRIN, 81 MG, TWICE DAILY FOR 4 WEEKS UNLESS OTHERWISE DIRECTED. THIS IS YOUR BLOOD THINNER. * HIGH RISK PATIENTS MAY BE PRESCRIBED A STRONGER BLOOD THINNER. THIS WILL BE PROVIDED AT DISCHARGE. * CALL IF INCREASED PAIN, REDNESS, DRAINAGE OR FEVER GREATER THAT 101. * WEAR BRIT HOSE 20 HOURS PER DAY FOR 2 WEEKS. * YOU MAY HAVE A LARGE BAND-AID LIKE DRESSING (SILVERON). THIS WILL REMAIN ON YOUR INCISION FOR 7 DAYS, THEN CAN BE REMOVED. IF INCISION IS LEAKING THROUGH DRESSING, CALL THE OFFICE . FOLLOW UP VISIT: If appointment is not already scheduled: Please call [facility] to make a follow-up appointment for 2 weeks after your surgery at . Current Hospital Diet Patient's current hospital diet: Regular Diet Discharge Diet Recommended Diet: Regular Diet Procedures Procedures Performed: Right total knee arthroplasty Pending Studies Studies pending at discharge: no Laboratory Results Hemoglobin A1c Test 03/04/17 15:16 Range/Units Estimated Average Glucose 114 mg/dl Hemoglobin A1c 5.6 4.5-5.6 % Medical Emergencies . Who to Call and When: Medical Emergencies: If at any time you feel your situation is an emergency, please call 911 immediately. . Non-Emergent Contact Non-Emergency issues call your: Primary Care Provider . "Provider Documentation" section prepared by Jared Hurtado. . VTE Core Measure Inpt VTE Proph given/why not?: Other Anticoagulation (asa), SCD's [place] Drug Monitoring Program Search Results: patient reviewed within database, no issues identified
[2017-04-11 09:42] VITALS: BP 133/75; PULSE 72; TEMP 36.7; O2SAT 95
--- NOTE | 2017-04-11 10:22 | Hospitalist Progress Note ---
Hospitalist Progress Note Date of Service April 11, 2017. Subjective Pt evaluation today including: conversation w/ patient, physical exam, chart review, lab review, review of inpatient medication list Pain: knee is sore PO Intake: kourtney po Voiding: no voiding problems denies nausea/vomiting/fever/chills or chest pain Constitutional: No chills, No fatigue, No fever, No problem reported, No see HPI, No sweats, No weakness, No weight loss Respiratory: No cough, No dyspnea at rest, No dyspnea on exertion, No hemoptysis, No problem reported, No see HPI, No shortness of breath, No sputum, No wheezing Cardiovascular: No PND, No chest pain, No claudication, No edema, No orthopnea, No palpitations, No problem reported, No see HPI Abdomen: No GI bleeding, No constipation, No diarrhea, No nausea, No pain, No problem reported, No see HPI, No vomiting Musculoskeletal: + joint pain (right knee), + swelling (expected post op right knee edema), No calf pain, No muscle pain, No problem reported, No see HPI Neurologic: No balance problems, No memory loss, No numbness/tingling, No paralysis, No problem reported, No see HPI, No vertigo, No weakness Medications reviewed Objective Vital Signs Date Time Temp Pulse Resp B/P Pulse Ox O2 Delivery O2 Flow Rate FiO2 04/11/17 09:42 36.7 72 16 95 Room Air 04/11/17 07:21 Room Air 04/11/17 06:56 36.7 72 16 133/75 95 Room Air 04/10/17 23:30 Room Air 04/10/17 23:05 36.6 76 20 127/75 94 Room Air 04/10/17 15:56 36.6 65 16 112/66 98 Room Air 65 04/10/17 15:45 Room Air 04/10/17 12:30 36.4 72 13 112/64 97 Room Air Physical Exam General Appearance: WD/WN Eyes: normal inspection ENT: pharynx normal Neck: supple Respiratory/Chest: chest non-tender, lungs clear, no respiratory distress Cardiovascular: regular rate, rhythm, no edema, no gallop, no JVD, no murmur Abdomen: normal bowel sounds, non tender, soft Extremities: no pedal edema, no calf tenderness (sutures/incision intact, edges well approximated) Neurologic/Psychiatric: no motor/sensory deficits, alert, oriented x 3 Skin: normal color Laboratory Results Last 24 Hours Test 04/11/17 07:00 White Blood Count 7.94 K/uL Red Blood Count 3.79 M/uL Hemoglobin 11.7 g/dL Hematocrit 36.8 % Mean Corpuscular Volume 97.1 fL Mean Corpuscular Hemoglobin 30.9 pg Mean Corpuscular Hemoglobin Concent 31.8 g/dl RDW Standard Deviation 56.3 fL RDW Coefficient of Variation 16.1 % Platelet Count 136 K/uL Mean Platelet Volume 12.4 fL Sodium Level 141 mmol/L Potassium Level 5.3 mmol/L Chloride Level 110 mmol/L Carbon Dioxide Level 26 mmol/L Anion Gap 5.0 mmol/L Blood Urea Nitrogen 33 mg/dl Creatinine 0.82 mg/dl Est Creatinine Clear Calc Drug Dose 79.1 ml/min Estimated GFR () 86.4 Estimated GFR (Non- 74.6 BUN/Creatinine Ratio 40.0 Random Glucose 94 mg/dl Calcium Level 9.6 mg/dl Assessment and Plan 1) R TKA - CMS good, no calf tenderness - dressing removed, incision looks good with no significant drainage- Per Ortho 2) Hyperkalemia - repeat K this am 5.3 - give a dose of kayexelate - okay going home. 3) DVT prophylaxis per orthopedic guidelines ASA 81mg BID 4) HTN - stable on atenolol 5) D/C may be discharged home after kayexelate. follow up with PCP in a few days Discharge planning: home with home health
[2017-04-11] MEDS ORDERED: SODIUM POLYST. SULF SUSP 15G/60ML PO ONE (10:30)
--- NOTE | 2017-04-24 11:35 | DISCHARGE SUMMARY ---
HISTORY OF PRESENT ILLNESS: A 66-year-old female patient of Dr. Spear'edis complaining of chronic right knee pain, long-standing progressively getting worse. The patient failed conservative treatment and elected to proceed with a right total knee arthroplasty. PAST MEDICAL HISTORY: Hypertension, osteoarthritis, and obesity. POSTOPERATIVE COURSE: The patient underwent a right total knee arthroplasty on 04/09/2017. She was followed closely with medical consultation, DVT prophylaxis in the form of aspirin, physical therapy and pain control. She did have a critical potassium level high at 6.5 on postoperative day #1. She was given dextrose 50% and insulin 10 units IV, repeat potassium an hour later was normal. The patient was slightly high on discharge, she was at 5.3. She was given Kayexalate and okay to be discharged per medical service. EKG was also obtained after the critical K+ was found. There were no changes from her previous EKG, no prolonged QRS waves or dynamic QT wave changes. She was cleared medically and discharged on postoperative day #2. PHYSICAL EXAMINATION: Right knee incision was clean, dry and intact. Sutures are intact. Skin edges were approximated well. There was no redness or drainage. She had no calf tenderness. Negative Homans sign. Neurologically and neurovascularly she was intact in her right lower extremity. DIAGNOSIS: Status post right total knee arthroplasty. She had postoperative hyperkalemia resolved on discharge. She also has a history of hypertension, osteoarthritis, and obesity. PLAN: The patient was discharged home with home health services. She will continue aspirin twice daily for DVT prophylaxis. She will follow up with her physician for her potassium checks. She will continue her preadmission medications with the addition of pain medication. She will follow up as scheduled as an outpatient. OSBALDO
== END 2017-04-11 11:20 | disposition home health service (06) | DRG 470 ==
LOC: ENRESERVDT → ENRESERVTM → C.ACU 05:14 → C.3E 07:05
PROVIDERS: ADMIT Orthopaedic Surgery Sports Medicine; ATTEND Orthopaedic Surgery Sports Medicine
PROC: 0SRC0J9 Replacement of Right Knee Joint with Synthetic Substitute, Cemented, Open Approach (ICD-10-PCS; principal; 2017-04-09 07:00)
DX: M17.11 Unilateral primary osteoarthritis, right knee (principal); I10 Essential (primary) hypertension; E66.9 Obesity, unspecified; Z68.36 Body mass index [BMI] 36.0-36.9, adult; E87.5 Hyperkalemia; Z79.899 Other long term (current) drug therapy; Z79.82 Long term (current) use of aspirin

== ENCOUNTER → 2017-04-16 | Outpatient (CLI) | payer BC, OTHER ==
[~2017-04-16] MED LIST changes: +ACET-1138 PO; -ACET325T96 PO; +ASPEC81 PO; -ASPI81TA28 PO; +CLB200 PO; -HYDR-5688 PO; -MISSING PHYSICIAN SIGNATURE ON ORDER SCH; +ONDA8TAB6 PO; +OXYSR10 PO; +RXC5 PO
[2017-04-16 13:05] LABS: HEMATOCRIT 37.9 % (37-47); MEAN CELL VOLUME 98.2 fL (80-100); MEAN CORPUSCULAR HEMOGLOBIN 31.1 pg (25-34); MEAN CORPUSCULAR HGB CONC 31.7 g/dl (32-36); MEAN PLATELET VOLUME 12.5 fL (7.4-10.4); PLATELET COUNT 156 K/uL (130-400); RED BLOOD COUNT 3.86 M/uL (4.2-5.4); WHITE BLOOD COUNT 6.59 K/uL (4.8-10.8)
[2017-04-16 13:27] LABS: BLOOD UREA NITROGEN 34 mg/dl (7-18); BUN/CREATININE RATIO 39.5 (10-20); CARBON DIOXIDE 31 mmol/L (21-32); CHLORIDE 104 mmol/L (98-107); CREATININE 0.87 mg/dl (0.60-1.20); GLUCOSE 106 mg/dl (70-99); POTASSIUM 5.4 mmol/L (3.5-5.1); SODIUM 141 mmol/L (136-145)
[2017-04-16 13:42] LABS: CALCIUM 9.7 mg/dl (8.5-10.1)
== END | disposition home or self-care (01) ==
LOC: C.LABMFLN 10:02
PROVIDERS: ATTEND Family Medicine
DX: R60.9 Edema, unspecified (principal); E87.5 Hyperkalemia; D64.9 Anemia, unspecified; I10 Essential (primary) hypertension

== ENCOUNTER → 2017-04-24 | Outpatient (CLI) | payer BC, OTHER | END | disposition home or self-care (01) | LOC: C.LABMFLN 11:10 | PROVIDERS: ATTEND Family Medicine | DX: E87.5 Hyperkalemia (principal) ==

== ENCOUNTER → 2017-06-24 | Outpatient (CLI) | payer BC ==
[2017-06-24 13:57] LABS: BLOOD UREA NITROGEN 21 mg/dl (7-18); BUN/CREATININE RATIO 30.9 (10-20); CALCIUM 9.8 mg/dl (8.5-10.1); CARBON DIOXIDE 31 mmol/L (21-32); CHLORIDE 104 mmol/L (98-107); CREATININE 0.67 mg/dl (0.60-1.20); GLUCOSE 107 mg/dl (70-99); POTASSIUM 4.5 mmol/L (3.5-5.1); SODIUM 139 mmol/L (136-145)
== END | disposition home or self-care (01) ==
LOC: C.LABMFLN 09:10
PROVIDERS: ATTEND Family Medicine
DX: I10 Essential (primary) hypertension (principal); E55.9 Vitamin D deficiency, unspecified; M17.10 Unilateral primary osteoarthritis, unspecified knee

== ENCOUNTER → 2018-02-09 | Day surgery (SDC) | payer BC ==
[2018-01-27 09:51] VITALS: BMI 35.0
[~2018-02-09] VITALS: Ht 165.1 cm; Wt 97.7 kg
[~2018-02-09] MED LIST changes: -ACET-1138 PO; +ASPCH81X PO; -ASPEC81 PO; -ATEN-173 PO; +ATROPINE SULFATE 0.1 MG/ML 5ML SYR IV PRN; -CHOL2000 PO; +CHOL20009 PO; -CLB200 PO; +EpHEDrine SULFATE INJ 50 MG/ML AMP IV PRN; +LIDOCAINE HCL 2% 2 ML VIAL (20MG/ML) ONE; +LISI-729 PO; -LISI10TA PO; +METO50TA8 PO; -ONDA8TAB6 PO; -OXYSR10 PO; +PROPOFOL IV EMULSION 10 MG/ML 20 ML VIAL IV ONE; -RXC5 PO
[2018-02-09 13:29] VITALS: Ht 165.1 cm; Wt 97.7 kg
--- NOTE | 2018-02-09 13:58 | Endo History and Physical ---
History & Physical Date of Service: Feb 09, 2018. Chief Complaint: ABNORMAL STOOL TEST Referring Physician: DR TILLEY/DR JOHNSON History of Present Illness For colonoscopy Past Surgical History Hx Cardiac Surgery: No Hx Internal Defibrillator: No Hx Pacemaker: No Hx Abdominal Surgery: No Hx of Implantable Prosthesis: No Hx Post-Op Nausea and Vomiting: Yes Hx Cancer Surgery: No Hx Thoracic Surgery: No Hx Orthopedic: Yes (ORIF RT ANKLE, RT TKA) Hx Urinary Tract Surgery: No Family History None Social History Smoking Status: Never Smoker Hx Substance Use: No Hx Alcohol Use: Yes (RARELY) Allergies Coded Allergies: Adhesives (Verified Allergy, Mild, RED RASH, 04/09/17) NO KNOWN DRUG ALLERGIES (Verified Allergy, Mild, ., 04/09/17) Nickel (Verified Allergy, Mild, EARRING MAKES EAR SORE, 04/09/17) Current Medications Reported Home Medications Medications Dose Route/Sig Max Daily Dose Days Date Category Vitamin D (Cholecalciferol) 2,000 Unit Tab 1 Tab PO QAM 01/27/18 Reported Aspirin Chewable (Aspirin) 81 Mg Chew 81 Mg PO HS 01/27/18 Reported Zestril (Lisinopril) 5 Mg Tab 5 Mg PO QPM 01/27/18 Reported Toprol-Xl (Metoprolol Succinate) 50 Mg Tabcr 50 Mg PO QAM 01/27/18 Reported Os-Mak 500 Plus D (Calcium/Vitamin D) Tab 1 Tab PO QPM 03/04/17 Reported Vital Signs Weight (Kilograms): 97.73 Height (Feet): 5 Height (Inches): 5 Date Time Temp Pulse Resp B/P (MAP) Pulse Ox O2 Delivery O2 Flow Rate FiO2 02/09/18 13:33 36.6 96 24 165/86 (112) 95 Room Air Physical Exam General Appearance: WD/WN Respiratory/Chest: Respiratory effort: no dyspnea Cardiovascular: Heart Auscultation: RRR Abdomen: Inspection & Palpation: soft Assessment and Plan Positive cologuard test for colonoscopy
--- NOTE | 2018-02-09 14:26 | Discharge Instructions ---
Endoscopy Patient Instructions Date / Procedure(s) Performed Feb 09, 2018. Colonoscopy Allergy Information Coded Allergies: Adhesives (Verified Allergy, Mild, RED RASH, 04/09/17) NO KNOWN DRUG ALLERGIES (Verified Allergy, Mild, ., 04/09/17) Nickel (Verified Allergy, Mild, EARRING MAKES EAR SORE, 04/09/17) Discharge Date / Findings Feb 09, 2018. polyps Medication Instructions Stopped Medication(s): MULTIVITAMINS, ASPIRIN, AND CALCIUM- LAST DOSE 02/07/18 Restart Stopped Medication(s): resume meds Reported Home Medications Medications Dose Route/Sig Max Daily Dose Days Date Category Vitamin D (Cholecalciferol) 2,000 Unit Tab 1 Tab PO QAM 01/27/18 Reported Aspirin Chewable (Aspirin) 81 Mg Chew 81 Mg PO HS 01/27/18 Reported Zestril (Lisinopril) 5 Mg Tab 5 Mg PO QPM 01/27/18 Reported Toprol-Xl (Metoprolol Succinate) 50 Mg Tabcr 50 Mg PO QAM 01/27/18 Reported Os-Mak 500 Plus D (Calcium/Vitamin D) Tab 1 Tab PO QPM 03/04/17 Reported Provider Instructions Activity Restrictions - No exercising or heavy lifting for 24 hours. - Do not drink alcohol the day of the procedure. - Do not drive a car or operate machinery until the day after the procedure. - Do not make any important decisions or sign important papers in 24 hours after the procedure. Following Day: - Return to full activity which may include returning to work/school. Diet Start your diet with liquids and light foods (jello, soup, juice, toast). Then eat your usual diet if not nauseated. Treatment For Common After Affects For mild abdominal pain, bloating, or excessive gas: - Rest - Eat lightly - Lie on right side Follow-Up Information Follow-up with DR TILLEY/DR JOHNSON as scheduled Anesthesia Information What You Should Know You have had a procedure that required some medicine to reduce anxiety and discomfort. This treatment is called moderate sedation. After receiving the treatment, you may be sleepy, but you will be able to breathe on your own. The effects of the treatment may last for several hours. Follow these instructions along with Activity/Diet recommendations noted above: * Do NOT do anything where dizziness or clumsiness would be dangerous. * Rest quietly at home today, then you can be up and about tomorrow. * Have a responsible person stay with you the rest of today. * You may have had an I.V. today. If so, you may take the dressing off later today. Recommendations Call your doctor if: * Trouble breathing * Continuous vomiting for more than 24 hours * Temperature above 101 degrees * Severe abdominal pain or bloating * Pain not relieved by pain medicine ordered * There is increased drainage or redness from any incision * A large amount of rectal bleeding greater than 2-3 tablespoons. (If you had a polyp/s removed or have hemorrhoids, a small amount of blood - from the rectum is to be expected.) * You have any unanswered questions or concerns. IN THE EVENT OF A SERIOUS EMERGENCY, GO TO THE NEAREST EMERGENCY ROOM Your discharge instructions were prepared by provider Jean Feliz. Patient Instructions Signature Page Mickie Bonilla Patient (or Guardian) Signature/Date: I have read and understand the instructions given to me by my caregivers. Caregiver/RN/Doctor Signature/Date: The above-named patient and/or guardian has received patient instructions on this date. + Original Patient Signature Page (only) stays with chart. Please make copy for patient.
--- NOTE | 2018-02-09 14:29 | GI REPORT ---
Procedure Date: 02/09/2018 1:50 PM Procedure: Colonoscopy Indications: Positive fecal immunochemical test Medicines: Propofol total dose 260 mg IV, Lidocaine 40 mg IV Complications: No immediate complications. Estimated Blood Loss: Estimated blood loss was minimal. Procedure: Pre-Anesthesia Assessment: - Prior to the procedure, a History and Physical was performed, and patient medications, allergies and sensitivities were reviewed. The patient's tolerance of previous anesthesia was reviewed. - The risks and benefits of the procedure and the sedation options and risks were discussed with the patient. All questions were answered and informed consent was obtained. After I obtained informed consent, the scope was passed under direct vision. Throughout the procedure, the patient's blood pressure, pulse, and oxygen saturations were monitored continuously. The scope was introduced through the anus and advanced to the cecum, identified by appendiceal orifice and ileocecal valve. The patient tolerated the procedure well. The quality of the bowel preparation was good. Findings: A 5 mm polyp was found in the sigmoid colon. The polyp was sessile. The polyp was removed with a cold snare. Resection and retrieval were complete. Estimated blood loss was minimal. A 5 mm polyp was found in the cecum. The polyp was sessile. The polyp was removed with a cold snare. Resection and retrieval were complete. Estimated blood loss was minimal. A 3 mm polyp was found in the ascending colon. The polyp was sessile. The polyp was removed with a cold biopsy forceps. Resection and retrieval were complete. Estimated blood loss: none. Impression: - One 5 mm polyp in the sigmoid colon, removed with a cold snare. Resected and retrieved. - One 5 mm polyp in the cecum, removed with a cold snare. Resected and retrieved. - One 3 mm polyp in the ascending colon, removed with a cold biopsy forceps. Resected and retrieved. Recommendation: - Discharge patient to home (ambulatory). - Continue present medications. - Await pathology results. - Return to primary care physician PRN. Jean Feliz M.D. Jean Feliz MD 02/09/2018 2:29:24 PM This report has been signed electronically. Note Initiated On: 02/09/2018 1:50 PM I attest to the content of the Intraoperative Record and orders documented therein, exceptions below
[2018-02-09 15:04] VITALS: BP 146/92; PULSE 84; O2SAT 95
--- NOTE | 2018-02-09 15:15 | Anesthesiology Progress Note ---
Anesthesia Post Op Note Date & Time Feb 09, 2018 at 15:14 Vital Signs Pain Intensity: 0 Vital Signs Past 12 Hours Date Time Temp Pulse Resp B/P (MAP) Pulse Ox O2 Delivery O2 Flow Rate FiO2 02/09/18 15:04 84 18 146/92 (110) 95 Room Air 02/09/18 14:46 79 24 143/73 (96) 93 Room Air 02/09/18 14:31 81 24 96/56 (69) 92 Room Air 02/09/18 13:33 36.6 96 24 165/86 (112) 95 Room Air Notes Mental Status: alert / awake / arousable, participated in evaluation Pt Amnestic to Procedure: Yes Nausea / Vomiting: adequately controlled Pain: adequately controlled Airway Patency, RR, SpO2: stable & adequate BP & HR: stable & adequate Hydration State: stable & adequate Anesthetic Complications: no major complications apparent
== END | disposition home or self-care (01) ==
LOC: C.GI 12:36
PROVIDERS: ATTEND Internal Medicine Gastroenterology
DX: R19.5 Other fecal abnormalities (principal); D12.5 Benign neoplasm of sigmoid colon; D12.0 Benign neoplasm of cecum; D12.2 Benign neoplasm of ascending colon; I10 Essential (primary) hypertension; E66.9 Obesity, unspecified; Z68.35 Body mass index [BMI] 35.0-35.9, adult; Z96.651 Presence of right artificial knee joint; Z79.82 Long term (current) use of aspirin; Z79.899 Other long term (current) drug therapy; Z90.89 Acquired absence of other organs